=== PATIENT | female | born 1955 | race Caucasian/White ===

== ENCOUNTER 2024-02-17 12:38 | Emergency (ER) | payer OTHER, SELFPAY ==
[2024-02-17 12:41] VITALS: BP 157/92
[2024-02-17 12:45] VITALS: BP 157/92
--- NOTE | 2024-02-17 12:46 | ED.GENMED ---
History of Present Illness
General
Chief Complaint: Cold/Flu/URI Symptoms
Source: patient and ambulance crew
Time Seen by Provider: 02/17/24 12:44
History of Present Illness
History of Present Illness:
68yoF with a history of hypertension and hyperlipidemia presenting via EMS for evaluation of an abnormal EKG. Patient went to urgent care today for a suspected sinus infection. She reports ear pain ongoing for a while. She developed congestion,
headache, and cough within the past 24 hours. While at urgent care, she had a CXR and was diagnosed with lobar pneumonia. An EKG was performed which showed nonspecific ST/T wave changes and EMS was called. Patient has no cardiac symptoms and denies
any chest pain or shortness of breath. She has indigestion and acid reflux from time to time but does not have this currently.
Phy Exam
General Physical Exam
General Presentation: well appearing and no apparent distress
General age: appears stated age
General Skin: warm and dry
General Habitus: normal
General Mental: alert
ENT Exam
ENT Exam: TM's normal, pharynx normal and normocephalic
Additional ENT: +Nasal congestion
Cardiovascular Exam
Cardiovascular Exam: regular rate/rhythm and no murmur
Pulmonary Exam
Pulmonary Exam: lungs clear, no respiratory distress, no rales, no crackles, no rhonchi and no wheezing
[place] Coma Scale
Eye Opening: Spontaneous
Verbal Response: Oriented
Motor Response: Obeys Commands
GCS Total Score: 15
Skin Exam
Skin Exam: normal color and warm/dry
Psychiatric Exam
Psychiatric Exam: normal mood/affect
Course
Orders/Labs/Results
Orders:
Orders
02/17/24 12:44
EKG [Electrocardiogram (*1)] Urgent
Reason for Study: Shortness of Breath
EKG- Treatment ONCE
02/17/24 12:56
COVID-19 Antigen Urgent
Source: Nasal Swab
Complete Blood Count/With Diff Urgent
Troponin I Urgent
Influenza A+B Rapid Molecular Urgent
VICENTE Source: Nasal Swab
Specimen Description:
02/17/24 13:34
Comprehensive Metabolic Panel Urgent
02/17/24 13:44
Acetaminophen [Tylenol] 1,000 mg PO NOW STA
Abnormal Lab Results
02/17/24 02/17/24
12:56 13:34
MPV 12.3 H fL
(7.4-10.4)
Absolute Neuts (auto) 7.7 H 10^3/uL
(1.4-6.5)
Absolute Lymphs (auto) 1.0 L 10^3/uL
(1.2-3.4)
Absolute Monos (auto) 1.0 H 10^3/uL
(0.1-0.6)
Neutrophils % 78.4 H %
(42.2-75.2)
Lymphocytes % 10.0 L %
(20.5-51.1)
Monocytes % 10.3 H %
(1.7-9.3)
BUN 20 H mg/dl
(7-17)
02/17/24 12:56
02/17/24 13:34
Vital Signs
Initial and Last Documented VS:
Initial Vital Signs
Pulse Resp Pulse Ox
107 12 96
02/17/24 12:40 02/17/24 12:40 02/17/24 12:40
Last Documented Vital Signs
Temp Pulse Resp BP Pulse Ox
99.3 F 100 22 132/77 94
02/17/24 12:45 02/17/24 14:18 02/17/24 14:18 02/17/24 14:40 02/17/24 14:15
MDM/Problems Addressed
Differential Diagnosis Includes:
68yoF here with an abnormal EKG at urgent care. She initially went to urgent care for sinus infection symptoms. She denies any CP/SOB. Hx of HTN and HLD. VSS. She is well appearing in no distress. Exam is reassuring. Differential diagnosis includes
but is not limited to: URI, pneumonia, allergic rhinitis, dehydration, doubt ACS as she has no cardiac symptoms
Initial ED plan: Check COVID/flu swab, cardiac labs, and EKG.
*EKG
Interpreted by ED Provider?: Yes
EKG Intrepretation Date: 02/17/24
Heart Rate: 106
Rate: tachycardiac
Rhythm: sinus and PVC's
[place]: normal axis
Interval: normal interval
QRS Pattern: normal QRS
Ischemia: non-specific ST changes (ST depressions in leads I and aVL. Nonspecific ST changes in leads V5 and V6. No prior EKGs to compare to.)
*Critical Care Note
Total Time (30-74mins, 75-104mins- exclusive of procedures): Not Applicable
Update Note
Update Note:
Labs unremarkable including normal white count. COVID/flu negative. EKG shows NSR with nonspecific ST changes. No prior EKGs to compare to. Troponin WNL and again patient has no cardiac symptoms. Patient arrived from [facility] with a disc of her
CXR images. I was able to review the CXR and I do not see any infiltrates per my interpretation. I called [facility] and spoke with a nurse. Radiology reports take 24-48 hours at [facility]. Presentation is consistent with a viral illness.
Supportive care discussed. She was given a watch and wait prescription for doxycycline to start if she does not feel better by the end of the week. Will refer to cardiology for completeness. She was advised to return to the ED with any chest pain or
shortness of breath. She expressed understanding and is agreeable to plan. She was discharged in stable condition.
ED Attending Note
-
Portions of this chart may have been created with voice recognition software.� Occasional wrong word or��sound alike� substitutions may have occurred due to the inherent limitations of voice recognition software.
Discharge Plan
Departure
Patient Disposition: Home (Routine Discharge)
Date of Disposition: 02/17/24
Time of Disposition: 14:22
Patient with high blood pressure during this ER visit?: Yes
Discharge Problem:
Sinusitis, Nonspecific abnormal electrocardiogram (ECG)
Instructions: Sinusitis in adults
Prescriptions:
New
doxycycline hyclate 100 mg capsule
100 mg PO BID Qty: 14 0RF
Referrals:
Damien Briseno MD [Active] -
George Mohr MD [Family Provider] -
Activity Restrictions/Additional Instructions:
Use Flonase nasal spray, Mucinex, and Claritin. Drink plenty of fluids and rest. If you do not feel better in the next 4-5 days, you can start the antibiotic.
Please follow-up with your family doctor and cardiology.
Return to the ER with any worsening symptoms, chest pain, shortness of breath.
Interventions
Interventions:
*Risk Screen - Suicide Last Done: 02/17/24 12:45
*General Assessment Last Done: 02/17/24 12:45
*Neglect/Abuse Screening Last Done: 02/17/24 12:45
*ED COVID-19 Vaccine History Last Done: 02/17/24 12:54
*Nursing Disposition Last Done: 02/17/24 14:50
ED- Pulmonary Assessment Last Done: 02/17/24 12:54
Discharge Date and Time
Discharge Date/Time: 02/17/24 14:51
Print Language: CZECH
[2024-02-17 13:00] VITALS: BP 145/95
[2024-02-17 13:02] LABS: % Basophils 0.6 % (0-2); % Eosinophils 0.4 % (0-6); % Immature Granulocytes 0.3 % (0-0.5); % Monocytes 10.3 % (1.7-9.3); % Neutrophils 78.4 % (42.2-75.2); Absolute Basophils 0.1 10^3/uL (0-0.2); Absolute Neutrophils 7.7 10^3/uL (1.4-6.5); Hematocrit 43.4 % (37.0-47.0); Hemoglobin 14.5 g/dL (12.0-16.0); Mean Corp Hgb Conc. 33.4 g/dL (33.0-37.0); Mean Corpuscular Hgb 28.4 pg (27.0-31.0); Mean Corpuscular Volume 85.1 fL (81.0-99.0); Mean Platelet Volume 12.3 fL (7.4-10.4); Nucleated Red Blood Cells % 0 %; Platelet Count 194 10^3/uL (130-400); Red Cell Dist. Width 13.8 % (11.5-14.5); White Blood Cell Count 9.8 10^3/uL (4.8-10.8)
[2024-02-17 13:17] LABS: COVID-19 Antigen Negative (Negative)
[2024-02-17 13:26] LABS: Troponin I < 0.012 ng/ml
[2024-02-17] MEDS: TYLENOL 1000 MG PO (13:53)
[2024-02-17 14:05] LABS: ALT (SGPT) < 10 U/L (0-35); AST (SGOT) 21 U/L (14-36); Alkaline Phosphatase 103 U/L (38-126); Blood Urea Nitrogen 20 mg/dl (7-17); Calcium 9.7 mg/dl (8.4-10.2); Carbon Dioxide 28 mmol/L (22-30); Chloride 102 mmol/L (98-107); Estimated Creatinine Clearance 71 ml/min; Glucose 97 mg/dl (70-99); Potassium 3.8 mmol/L (3.5-5.1); Sodium 139 mmol/L (135-145); Total Bilirubin 1.1 mg/dl (0.2-1.3); Total Protein 6.6 g/dl (6.3-8.2); eGFR > 60.00
[2024-02-17 14:40] VITALS: BP 132/77
== END 2024-02-17 14:51 | disposition home or self-care (01) ==
LOC: EMR 12:38
PROVIDERS: Physician Assistant; EMERGENCY PHYSICIAN Student in an Organized Health Care Education/Training Program; FAMILY PHYSICIAN Family Medicine
DX: J32.9 Chronic sinusitis, unspecified (principal); R94.31 Abnormal electrocardiogram [ECG] [EKG]; I11.9 Hypertensive heart disease without heart failure; I50.9 Heart failure, unspecified; E78.5 Hyperlipidemia, unspecified
CPT/HCPCS: 99284; 80053; 84484; 85025; 87502; 87811; 93005